=== PATIENT | male | born 2000 | race African-American/Black ===

== ENCOUNTER 2020-01-15 22:41 | Emergency (ER) | payer MEDICAID ==
[~2020-01-15] VITALS: Ht 182.9 cm; Wt 81.6 kg
[2020-01-15 22:52] VITALS: BP 121/62
== END 2020-01-16 | disposition left against medical advice (07) ==
LOC: ER 22:45
DX: A64 Unspecified sexually transmitted disease (principal); Z53.21 Procedure and treatment not carried out due to patient leaving prior to being seen by health care provider

== ENCOUNTER 2020-01-30 14:24 | Emergency (ER) | payer MEDICAID ==
[~2020-01-30] VITALS: Ht 185.4 cm; Wt 81.6 kg
[2020-01-30 14:33] VITALS: BP 108/64
== END 2020-01-30 15:57 | disposition home or self-care (01) ==
LOC: ER 14:24
DX: S31.23XA Puncture wound without foreign body of penis, initial encounter (principal); X58.XXXA Exposure to other specified factors, initial encounter; Y93.89 Activity, other specified; Y92.89 Other specified places as the place of occurrence of the external cause; Y99.8 Other external cause status